=== PATIENT | male | born 1940 | race Caucasian/White ===

== ENCOUNTER 2023-05-10 09:04 | Emergency (ER) | payer MEDICARE, BC, SELFPAY ==
[2023-05-10 09:31] VITALS: BP 143/63; PULSE 54; RESP 18; TEMP 36.2; O2SAT 98; BMI 24.0
[2023-05-10 10:09] LABS: Appearance Urine Turbid (Clear); Bilirubin Urine Negative (Negative); Blood Urine 3+ (Negative); Color Urine Brown (Yellow); Glucose Urine Negative (Negative); Ketones Urine Trace (Negative); Leukocyte Esterase Urine Negative (Negative); Nitrite Urine Negative (Negative); Protein Urine 2+ (Negative); Specific Gravity Urine >= 1.030 (1.000-1.030); Urobilinogen Urine 0.2 (0.2-1.0); pH Urine 5.5 (5.0-8.5)
[2023-05-10 10:19] LABS: Bacteria Urine Few; RBC Urine >100 (0-2); Squamous Epithelial Cell Urine Few (None-Few)
--- NOTE | 2023-05-10 11:32 | ED_ITS ---
HPI - General Adult General Chief complaint: Flank Pain Stated complaint: Blood in urine Time Seen by Provider: 05/10/23 09:14 History of Present Illness HPI narrative: Monday evening discovered some pinky urine and Monday charcoal colored and today was almost black. denies taking any blood thinners and the left testicle is larger than the other. denies having any pain with this. feels getting more tired quicker than normal. no change with urine pattern, pain, or injury /trauma. 83-year-old man presenting to the emergency department with concern of blood in urine and fatigue. Denies abdominal pain. Does note what sounds to be a chronic left-sided hydrocele. He he does recall straining at stool recently wondering if that might have contributed to this blood that we see here today. By the time I am seeing Mr. Fall urinalysis has been resulted with 3+ arben turia but without indication of infection otherwise. He denies personal family history of kidney stones. Has not had trouble with urinary retention. No fever. 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 Prefers to stay active he says. He has a little tired more easily than usual. He does not report exertional dyspnea though otherwise. No trauma. No anticoagulants. The pink colored urine was noted 2 days ago and then was particularly dark the following morning and this morning and now he thinks is lightening. Related Data Home Medications Medication Instructions Recorded Confirmed amlodipine 5 mg tablet 5 mg PO DAILY 05/10/23 05/10/23 cholecalciferol (vitamin D3) 50 50 mcg PO DAILY 05/10/23 05/10/23 mcg (2,000 unit) capsule metoprolol succinate 50 mg 50 mg PO DAILY 05/10/23 05/10/23 tablet,extended release 24 hr omega 5-brh-yrl-fish oil 1,200 mg cap PO 05/10/23 (144 mg-216 mg) capsule (Fish Oil) omeprazole 20 mg capsule,delayed 20 mg PO DAILY 05/10/23 05/10/23 release Allergies Allergy/AdvReac Type Severity Reaction Status Date / Time ativan Allergy Mild dizziness Uncoded 05/10/23 09:40 and near syncopal episode novacaine Allergy Mild Dizziness Uncoded 05/10/23 09:40 and near syncopal episode Review of Systems Status of ROS: Reports: 6 or more systems reviewed and unremarkable except as noted in History and below Exam Narrative: Exam Narrative: Very pleasant small stature. NAD. Moderate kyphosis to the thoracic spine. He is breathing easily. Mucous membranes are moist and appropriately pink. Lungs are clear. There is no flank pain. Abdomen otherwise is soft and nontender without appreciable mass. Genitourinary exam with slightly tender left sided testicle, frankly both are little tender but without particular tension. The left testicle does appear slightly larger than the right, soft. She reports this is longstanding. I do not see any blood at the urethral meatus. Extremities are without edema other than noninflamed venous varicosities over the lower legs. Heart in slower rate and regular rhythm. Const: Vital Signs, click to edit/add: Vital Signs - 24 hr 05/10/23 09:31 Temperature 97.2 F L Pulse Rate [Right Pulse Oximeter] 54 L Respiratory Rate 18 Blood Pressure [Ri ght Upper Arm] 143/63 H Pulse Oximetry 98 Oxygen Delivery Me thod Room Air Documenting provider has reviewed patient's vital signs: yes Course Vital Signs Vital signs: Initial Vital Signs Temperature 97.2 F L 05/10/23 09:31 Temperature Source Temporal Artery Scan 05/10/23 09:31 Pulse Rate 54 L 05/10/23 09:31 Respiratory Rate 18 05/10/23 09:31 Blood Pressure 143/63 H 05/10/23 09:31 Blood Pressure Mean 89 05/10/23 09:31 Blood Pressure Position Sitting 05/10/23 09:31 Pulse Oximetry 98 05/10/23 09:31 Oxygen Delivery Method Room Air 05/10/23 09:31 Vital Signs Temperature 97.2 F L 05/10/23 09:31 Pulse Rate 54 L 05/10/23 09:31 Respiratory Rate 18 05/10/23 09:31 Blood Pressure 143/63 H 05/10/23 09:31 Pulse Oximetry 98 05/10/23 09:31 Oxygen Delivery Method Room Air 05/10/23 09:31 Temperature 97.2 F L 05/10/23 09:31 Pulse Rate 54 L 05/10/23 09:31 Respiratory Rate 18 05/10/23 09:31 Blood Pressure 143/63 H 05/10/23 09:31 Pulse Oximetry 98 05/10/23 09:31 Oxygen Delivery Method Room Air 05/10/23 09:31 Medical Decision Making MDM Narrative Medical decision making narrative: I do see urinalysis evidence of blood 3+ blood. No white cells normal no nitrite no leukocyte esterase. History not consistent with nephrolithiasis but I suppose could be possible in the renal pelvis. but I would work this up for painless hematuria which I think can be done in outpatient setting. Would have concerns of course of bladder polyp. Or other issue in the bladder. Has not been having symptoms otherwise. Is not apparently known to have renal issues and does not have evidence of renal compromise otherwise here today. Does have follow-up in clinic in 2 days time for his regular physical. I think further evaluation can be coordinated here. I did contact patient primary to give a heads up. See patient discharge plan Lab Data Lab results reviewed: Yes I reviewed the patient's lab results Labs: Lab Results 05/10/23 Range/Units 10:00 Urine Color Brown A (Yellow) Urine Appearance Turbid A (Clear) Urine pH 5.5 (5.0-8.5) Ur Specific [place] >= 1.030 (1.000-1.030) Urine Protein 2+ A (Negative) Urine Glucose (UA) Negative (Negative) Urine Ketones Trace A (Negative) Urine Blood 3+ A (Negative) Urine Nitrite Negative (Negative) Urine Bilirubin Negative (Negative) Urine Urobilinogen 0.2 (0.2-1.0) Ur Leukocyte Esterase Negative (Negative) Urine RBC >100 A (0-2) Urine WBC 2-5 (0-5) Ur Squamous Epith Cells Few (None-Few) Urine Bacteria Few A (None) Discharge Plan Discharge Clinical Impression: Painless hematuria Patient Disposition: Home, Self-Care Condition: Stable Instructions: Hematuria (ED) Additional Instructions: Please follow-up on Monday as planned with your doctor. He can help you determine the next steps in workup for this bleeding. Return for persistent increase in bleeding, increasing lower abdominal pain, fever, lightheadedness. Activity Level: No Restrictions Discharge Diet: Regular Prescriptions: No Action metoprolol succinate 50 mg tablet extended release 24 hr 50 mg PO DAILY amlodipine 5 mg tablet 5 mg PO DAILY cholecalciferol (vitamin D3) 50 mcg (2,000 unit) capsule 50 mcg PO DAILY omeprazole 20 mg capsule,delayed release(DR/EC) 20 mg PO DAILY omega 7-xmy-kqn-fish oil [Fish Oil] 1,200 (144-216) mg capsule PO Follow Up/Referrals: Ace Givens MD [Primary Care Provider] - Stand Alone Forms: [employer] Info Instructions
== END 2023-05-10 12:04 | disposition home or self-care (01) ==
LOC: ED 11:54
PROVIDERS: Family Medicine; Emergency Provider Family Medicine; PCP Surgery
DX: R31.9 Hematuria, unspecified (principal)
CPT/HCPCS: 81001; 87086; 99283; 99284

== ENCOUNTER 2023-07-31 09:25 | Outpatient (CLI) | payer MEDICARE, BC, SELFPAY ==
--- NOTE | 2023-07-31 10:12 | W.ANESCHARGE ---
Anesthesia Charges Start Date/Time Anesthesia Start Date: 07/31/23 Anesthesia Start Time: 10:13 Stop Date/Time Anesthesia Stop Date: 07/31/23 Anesthesia Stop Time: 11:00 Summary Extremes of Age - Over 70 or under 1: MDA
--- NOTE | 2023-07-31 11:04 | P.ANES_ITS ---
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
== END 2023-07-31 09:26 | disposition home or self-care (01) ==
LOC: OP CLINIC 09:26
PROVIDERS: PCP Surgery; Visit Provider Internal Medicine Gastroenterology
DX: Z12.11 Encounter for screening for malignant neoplasm of colon (principal); R19.7 Diarrhea, unspecified; K22.70 Barrett's esophagus without dysplasia; Z13.810 Encounter for screening for upper gastrointestinal disorder; Z98.890 Other specified postprocedural states
CPT/HCPCS: 00813; 43239; 45380; 88305; 99100; J2704

== ENCOUNTER 2025-01-31 06:35 | Emergency (ER) | payer MEDICARE, BC, SELFPAY ==
--- OUTSIDE RECORDS SUMMARY | 2025-01-31 06:37 | XMS_ITS | Clinical Summary ---
Author Organization [facility] Address [facility] [place] [address] Care Team Providers Care Can Feeder Name Role Phone Negro Harvey MD Unavailable [phone] Ace Givens MD Primary Care Provider [phone]- [phone] Patricia Ojeda MD Unavailable [phone] Allergies Active Allergy Reactions Criticality Noted Date Comments Lorazepam *Unknown 08/15/2009 Procaine Palpitations 07/05/2006 Medications OMEGA-3 FATTY ACIDS 1,000 MG CAP one daily 0 11/14/19 08 Active multivitamin (MVI) tablet Take 1 tablet by mouth once daily. Contains 0.4 mg of Folic Acid. With vit D 0 09/03/19 10 Active calcium carbonate-vitami n D3, 600 mg-125 unit, (CALCIUM 600 + D) tablet Take 1 tablet by mouth 2 times daily with meals. 0 03/19/20 10 Active ascorbic acid (VITAMIN C) 500 mg tablet Take 1 tablet by mouth 2 times daily with meals. 180 tablet 3 04/03/20 12 Active acetaminophen (TYLENOL) 325 mg tablet Take 1 tablet by mouth every 4 hours if needed. Max acetaminophen dose: 4000mg in 24 hrs. 0 04/06/20 18 Active cholecalciferol (Vitamin D-3) 2,000 unit capsuleIndicatio ns:Vitamin D deficiency Take 1 Capsule (2,000 units) by mouth once daily. 90 Capsule 3 05/16/19 24 Active amLODIPine (NORVASC) 5 mg tabletIndication s:Essential hypertension Take 1 Tablet (5 mg) by mouth once daily. 90 Tablet 3 05/16/19 25 Active metoprolol succinate (TOPROL XL) 50 mg sustained-releas e tabletIndication s:Essential hypertension Take 1 Tablet (50 mg) by mouth once daily. 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 90 Tablet 3 05/16/19 25 Active loperamide 2 mg tabletIndication s:Chronic diarrhea Take 0.5-1 tablet daily for loose stools 40 Tablet 2 08/14/19 25 Active tamsulosin (Flomax) 0.4 mg capsuleIndicatio ns:Incomplete bladder emptying Take 1 Capsule (0.4 mg) by mouth once daily after a meal. 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 Overview (08/03/2023): EGD 04/2012 Dillard's, repeat EGD in 2 years EGD 04/2014 Dillard's, repeat EGD in 3 years EGD 03/2017 [facility], repeat EGD in 3 years EGD 05/2020 [facility], repeat EGD in 3 years EGD 07/2023 [facility], repeat EGD in 3 years Other chest pain 05/10/2007 Overview (05/10/2007): -c/o exertional anterior chest heaviness, leg weakness as well as increased fatigue over the last year -Abnormal Stress Echo 04/05/07 Inferobasilar hypokinesia with peak exercise suggestive of ischemia Mitral valve insufficiency and aortic valve insu fficiency 05/10/2007 Overview (05/10/2007): -moderate aortic and mitral valve insufficiency per echo 03/14 Mixed hyperlipidemia 05/10/2007 Overview (05/10/2007): -started on statin tx, at LDL goal <70 -05/03/07 TChol 121 TG 76 LDL 69 HDL 37 Esophageal reflux 05/10/2007 Overview (05/10/2007): -on Prilosec Unspecified essential hypertension 11/03/2006 Diaphragmatic hernia without mention of obstruction or gangrene 11/03/2006 Overview (05/10/2007): -large hiatal hernia with 1/2 to 2/3 of stomach in chest cavity Resolved Problems Problem Noted Date Diagnosed Date Resolved Date Unspecified asthma(493.90) 01/28/2008 1 05/30/2015 Encounters Date Type Department Care Team Description 12/19/2024 11:00 AM CDT Office Visit [address] [id number] Patricia Ojeda MD Procedure (Cystoscopy) 12/19/2024 Travel from Last 3 Months Immunizations Immunization Administration Dates Next Due COVID-19 VACCINE SPIKEVAX (M ODERNA 50MCG/0.5ML) 12YO+ PFS 04/11/2023 COVID-19 vaccine (Pfizer-Bio NTech 30mcg/0.3mL) 12YO+ BIVALENT PF, MDV 03/01/2022 COVID-19 vaccine (Pfizer-Bio NTech 30mcg/0.3mL) PF, MDV 02/05/2021,07/14/2020,06/23/2020 Influenza, High-dose Inactivated 018,02/02/2017,01/28/2016,02/04,02/05/2014,01/29/2013,02/07/2012 Influenza, IIV3 (Age 6-35 mos) 02/09/2011,2009 Influenza, IIV3 (Age >=3 years) 01/30/20 13,02/07/2012,02/09/2011,02/06,02/29/2008,02/12/2008,03/01/2007 ,03/04/2005,03/08/2004,03/03/2003 Influenza, Inactivated AIIV4 (Age 65+ Years) Preserv Free 02/07/2023,02/07/2022,01/28/2021,01/16 Influenza, Inactivated IIV3 (Age 65+ Years) Preserv Free 02/01/2024,02/04/2019 Pneumococcal Poly,23-Valent (Pneumovax) 02/02/2017,03/10/2006 Pneumococcal conj 13-Valent (Prevnar 13) 03/19/2014 RSV, Bivalent Vaccine Recons tituted (Abrysvo 120MCG/0.5mL) 02/07/2023 Td (Age >=7 Years) 03/20/2002 Tdap 06/04/2020,02/22/2011 Zoster (Shingrix-RZV, recombinant) 08/05/2020, Zoster (Zostavax-ZVL, live) 05/10/2011 Family History Medical History Relation Name Comments Diabetes Father Other Father esophageal ca Diabetes Mother Anesthesia Problem No Family History Blood Disease No Family History Relation Name Status Comments Father Mother Social History Tobacco Use Types Packs/Day Years Used Date Smoking Tobacco: Never Smokeless Tobacco: Never Tobacco Cessation:Counseling Given: Yes Alcohol Use Standard Drinks/Week Comments Yes 10 (1 standard drink = 0.6 oz pu re alcohol) Very rare PHQ-2 Answer Date Recorded PHQ-2 TOTAL SCORE 2 05/16/2024 Social Connections Answer Date Recorded Do you often feel lonely or isolated from those around you? 4 05/16/2024 Financial Resource Strain Answer Date R ecorded Difficulty of Paying Living Expenses 3 05/16/2024 Difficulty of Paying Living Expenses Not on file 05/16/2024 Food Insecurity Answer Date Recorded Do you worry your food will run out before you are able to buy more? 1 05/16/2024 Transportation Needs Answer Date Record ed Does lack of transportation keep you from medica l appointments? 1 05/16/2024 Does lack of transportation keep you from work, meetings or getting things that you need? 1 05/16/2024 Housing Stability Answer Date Recorded What is your housing situation today? 1 05/16/2024 Utilities Answer Date Recorded Do you have trouble paying f or utilities (for example, heat, electricity, water, phone)? 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 Not on file Not on file Not on file Obstetrics History Last Filed Vital Signs Vital Sign Reading Time Taken Comments Blood Pressure 129/72 09/03/2024 1:40 PM CDT Pulse 57 09/03/2024 1:40 PM CDT Temperature 36.7 C (98 F) 05/05/2020 12:52 PM ADVERTISING SALES REPRESENTATIVE Respiratory Rate 16 02/17/2022 8:15 AM CDT Oxygen Saturation 98% 09/03/2024 1:40 PM CDT Inhaled Oxygen Concentration - - Weight 59 kg (130 lb) 09/03/2024 1:40 PM CDT Height 156.6 cm (5' 1.65) 05/16/2024 9:09 AM CS T Body Mass Index 24.04 05/16/2024 9:09 AM ADVERTISING SALES REPRESENTATIVE Plan of Treatment Upcoming Encounters Date Type Department Care Team (Late st Contact Info) Description 06/19/2025 11:15 AM ADVERTISING SALES REPRESENTATIVE Procedure Only [address] [phone] Patricia Ojeda MD [address] [place] [address] Health Maintenance Due Date Last Done Comments COVID-19 vaccine series (9 - Pfizer risk 2023- season) 2025 02/01/2024, 04/11/2023, 08/30/2022, Additional history exists Influenza Vaccine (#1) 2025 , 02/07/2023, 02/07/2022, Additional history exists BMI (ht and wt on same day) for age 18+ 05/16/2025 05/16/2024, 05/12/2023, 05/10/2022, Additional history exists Depression screening for age 12+ 05/16/2025 05/16/2024, 05/15/2023, 05/15/2023, Additional history exists Medicare Wellness for age 65+ 05/17/2025 05/16/2024, 05/12/2023, 05/10/2022, Additional history exists Tetanus booster 06/04/2030 06/04/2020, 02/05, 03/20/2002 Pneumococcal series for age 50+ Completed 02/02/2017, 03/19/2014, 03/10/2006 Zoster (shingles) series for age 50+ Completed 08/05/2020, 06/04/2020, 05/10/2011 RSV vaccine for adults or Completed 02/07/2023 Hepatitis B series for 19+ Aged Out N o longer eligible based on patient's age to complete this topic Procedures Procedure Name Priority Date/Time Associated Diagnosis Comments PATH URINE CYTOLOGY Routine 12/19/2024 1 1:58 AM CDT Malignant neoplasm of urinary bladder, unspecified site (HC) from Last 3 Months Results * PATH URINE CYTOLOGY (12/19/2024 11:58 AM CDT) Case Report Medical Cytology Report Case: [id number] Authorizing Provider: Patricia Ojeda MD Collected: 12/19/2024 1158 Ordering Location: [facility] Received: 12/19/2024 1321 Clinic Pathologist: Yury Ruano Jr., MD Specimen: Urine Void 12/20/2024 3:25 PM CDT [facility] Final Diagnosis A) URINE, VOIDED, CYTOLOGY: 1. Acute inflammation, negative for high-grade urothelial carcinoma 12/20/2024 3:25 PM CDT [facility] at 1525 CDT Comment A) According to the Shruthi System of reporting urinary cytology, the diagnosis of negative for high-grade urothelial carcinoma indicates the sample is composed of benign urothelial cells and that cells of high-grade urothelial carcinoma are absent. This does not exclude benign and low-grade urothelial neoplasia. 12/20/2024 3:25 PM CDT [facility] Clinical Information History of bladder cancer 12/20/2024 3:25 PM CDT [facility] Gross Description A) SOURCE: Urine, Voided The specimen consists of 60 cc of light peach opaque fluid from which the following is prepared: -1 Papanicolaou stained ThinPrep slide 12/20/2024 3:25 PM CDT [facility] Microscopic Description Specimen adequacy: Adequate for interpretation. All slides were reviewed. The microscopic appearance substantiates the diagnosis. 12/20/2024 3:25 PM CDT [facility] Additional Information Cytology is screened at [facility] - [address], [place] [address] and [facility] - [address] [place] [address] and [facility] - [address] [place] [address] Interpreted at [facility] - [address], [place] [address] 12/20/2024 3:25 PM CDT [facility] Urine URINE SPECIMEN / Unknown Non-Blood / Unknown 12/19/2024 11:58 AM CDT 12/19/2024 1:21 PM CDT us Patricia Ojeda MD PATHOLOGY/CYTOLOGY Final Resul t [facility] [address] [place] [address], from Last 3 Months Insurance [id number] [id number] MEDICARE PART B HB ONLY [place] BLUE MR PB ONLY MEDICARE PART A HB ONLY [place] BLUE HB ONLY Advance Directives Documents on File Type Date Recorded Patient Pneumatic Jack Operator Expl anation Healthcare Directive 04/10/2012 2:05 PM HE ALTH CARE DECLARATION, 09/19/1994 * Full Code (Latest Code Status on File) Date Activated Date Inactivated Comments 05/10/2007 9:24 AM 05/10/2007 11:23 PM Care Teams Can Feeder Relationship Specialty Start Date End Date Ace Givens MD [address] [place] [address] PCP - General Family Practice 02/05/21 Negro Harvey MD [address] [place] [address] Gastroenterology 03/14/13 Patricia Ojeda MD [address] [place] [address] [place] [id number] Surgery - Urology 06/20/24
[2025-01-31 06:39] VITALS: BP 173/80; PULSE 67; RESP 16; TEMP 36; O2SAT 96; BMI 26.8
[2025-01-31 06:49] LABS: Appearance Urine Cloudy (Clear)
--- NOTE | 2025-01-31 07:09 | CRLHL7_ITS ---
For Patients: As a result of the Century Cures Act, medical imaging exams and procedure reports are released immediately into your electronic medical record. You may view this report before your referring provider. If you have questions, please contact your health care provider. INDICATION: Hematuria. TECHNIQUE: CT abdomen and pelvis acquired without contrast. COMPARISON: CT abdomen and pelvis 08/06/2009. FINDINGS: Lower chest: Lung bases are clear. No pleural or pericardial effusions. Small hiatal hernia, unchanged. Postoperative changes about the gastroesophageal junction, as before. Liver: Unremarkable. Spleen: Unremarkable. Pancreas: Unremarkable. Gallbladder and bile ducts: No calcified stones or biliary ductal dilatation. Kidneys: No urolithiasis or hydronephrosis. Bilateral cysts have decreased. Adrenal glands: Unremarkable. GI tract: Colonic diverticulosis without evidence of acute diverticulitis. No obstruction or focal inflammatory changes. Nonvisualized appendix. No free air or free fluid. Lymph nodes: No pathologic lymphadenopathy. Vascular structures: Atherosclerotic disease. No abdominal aortic aneurysm. Pelvic Organs: Prostatomegaly. Bladder as imaged is unremarkable. Bilateral hernia repair changes. Bones: Degenerative changes spine and pelvis. No acute or suspicious abnormality. IMPRESSION: 1. No urolithiasis or hydronephrosis. 2. Prostatomegaly. 3. Colonic diverticulosis without evidence of acute diverticulitis. Dictated by Moy Jurado MD @ 01/31/2025 8:15:44 AM Please note that all CT scans at this facility use dose modulation, iterative reconstruction, and/or weight-based dosing when appropriate to reduce radiation dose to as low as reasonably achievable. Dictated by: Moy Jurado MD @ 01/31/2025 08:16:07 (Electronically Signed)
--- NOTE | 2025-01-31 07:22 | ED.MALEGU ---
HPI - Male Genitourinary General Date Seen: 01/31/25 <Vincent Santana MD - Last Filed: 02/03/25 01:17> Chief complaint: Urogenital Problems, Male <Vincent Santana MD - Last Filed: 02/03/25 01:17> Stated complaint: urinating blood <Vincent Santana MD - Last Filed: 02/03/25 01:17> Time Seen by Provider: 01/31/25 07:00 <Vincent Santana MD - Last Filed: 02/03/25 01:17> Source: patient <Vincent Santana MD - Last Filed: 02/03/25 01:17> Mode of arrival: ambulatory <Vincent Santana MD - Last Filed: 02/03/25 01:17> Limitations: no limitations <Vincent Santana MD - Last Filed: 02/03/25 01:17> History of Present Illness HPI Narrative: Patient is an 84-year-old male who was in his usual state of health yesterday. Last evening prior to going to bed he urinated in saw a small scab and his urine was pink. No dysuria, fevers, back pain, nausea, vomiting. Throughout the night when he has urinated it has been grossly bloody. No large clots. He feels that he is emptying his bladder. He was seen for the same thing May [address] Ojeda in Urology. He has a large left hydrocele that they are monitoring. He does not recall any discussion regarding the cause of his bleeding previously. It was treated with antibiotics for a few days and resolved so I assume it was prostatitis. 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 He normally sees Dr. Givens. <Vincent Santana MD - Last Filed: 02/03/25 01:17> Related Data Home medications: Home Medications ?Medication ?Instructions ?Recorded ?Confirmed amlodipine 5 mg tablet 5 mg PO DAILY 05/10/23 01/31/25 cholecalciferol (vitamin D3) 50 50 mcg PO DAILY 05/10/23 01/31/25 mcg (2,000 unit) capsule metoprolol succinate 50 mg 50 mg PO DAILY 05/10/23 01/31/25 tablet,extended release 24 hr omega 3-pvf-wfm-fish oil 1,200 mg cap PO 05/10/23 (144 mg-216 mg) capsule (Fish Oil) omeprazole 20 mg capsule,delayed 20 mg PO DAILY 05/10/23 01/31/25 release loperamide 2 mg capsule 1 - 2 PO diarrhea 01/31/25 Previous Rx's ?Medication ?Instructions ?Recorded ciprofloxacin HCl 250 mg tablet 250 mg PO BID #10 tabs 01/31/25 (Cipro) <Vincent Santana MD - Last Filed: 02/03/25 01:17> Allergies/Adverse reactions: Allergies Allergy/AdvReac Type Severity Reaction Status Date / Time ativan Allergy Mild dizziness Uncoded 05/10/23 09:40 and near syncopal episode novacaine Allergy Mild Dizziness Uncoded 05/10/23 09:40 and near syncopal episode <Vincent Santana MD - Last Filed: 02/03/25 01:17> Review of Systems Narrative: Review of systems is positive for chronic loose stools and an inability to gain weight. His blood pressure has been well managed. He denies exertional chest pains or shortness of breath. He describes a surgery on his stomach that sounds like a hiatal hernia repair. Review of systems in all other areas is noted to be negative. <Vincent Santana MD - Last Filed: 02/03/25 01:17> [facility] Social History: Social History Smoking Status: Never smoker How often do you have a drink containing alcohol: never AUDIT-C Alcohol total score: 0 Non-prescribed substance use: denies use <Vincent Santana MD - Last Filed: 02/03/25 01:17> Exam Narrative: Exam Narrative: Vitals noted. HEENT: Conjunctiva clear. Neck is supple without adenopathy. Lungs: Clear to auscultation in all farmer. No wheezes, rales, rhonchi. Heart: Regular rate and rhythm without murmur. Abdomen: Soft and nontender. No guarding, rigidity, rebound. Bowel sounds are normal. No palpable masses. No CVA tenderness. His left testicle is enlarged but nontender. Extremities: No cyanosis or edema. Good distal pulses. Skin: No abnormalities noted of the exposed skin. Neurologic: Awake, alert, fully oriented. Neurologic exam is nonfocal. <Vincent Santana MD - Last Filed: 02/03/25 01:17> Const: Vital Signs, click to edit/add: Vital Signs - 24 hr 01/31/25 06:39 Temperature 96.8 F L Pulse Rate [Pulse Oximeter] 67 Respiratory Rate 16 Blood Pressure [Ri ght Upper Arm] 173/80 H Pulse Oximetry 96 Oxygen Delivery Me thod Room Air <Vincent Santana MD - Last Filed: 02/03/25 01:17> Vital Signs, click to edit/add: Vital Signs - 24 hr 01/31/25 06:39 Temperature 96.8 F L Pulse Rate [Pulse Oximeter] 67 Respiratory Rate 16 Blood Pressure [Ri ght Upper Arm] 173/80 H Pulse Oximetry 96 Oxygen Delivery Me thod Room Air <Iker Kinney MD - Last Filed: 01/31/25 08:25> Course Course ED Course: Patient seen and examined. His urine is grossly bloody with 3+ protein, 3+ blood, greater than 100 red cells per high-power field and 2-5 white cells per high-power field. CBC, BMP, CT of the abdomen pelvis are ordered. His care is turned over to Dr. Kinney. <Vincent Santana MD - Last Filed: 02/03/25 01:17> Vital Signs Vital signs: Initial Vital Signs Temperature 96.8 F L 01/31/25 06:39 Temperature Source Temporal Artery Scan 01/31/25 06:39 Pulse Rate 67 01/31/25 06:39 Respiratory Rate 16 01/31/25 06:39 Blood Pressure 173/80 H 01/31/25 06:39 Blood Pressure Mean 111 H 01/31/25 06:39 Blood Pressure Position Semi-Fowlers 01/31/25 06:39 Pulse Oximetry 96 01/31/25 06:39 Oxygen Delivery Method Room Air 01/31/25 06:39 Vital Signs Temperature 96.8 F L 01/31/25 06:39 Pulse Rate 67 01/31/25 06:39 Respiratory Rate 16 01/31/25 06:39 Blood Pressure 173/80 H 01/31/25 06:39 Pulse Oximetry 96 01/31/25 06:39 Oxygen Delivery Method Room Air 01/31/25 06:39 Temperature 96.8 F L 01/31/25 06:39 Pulse Rate 67 01/31/25 06:39 Respiratory Rate 16 01/31/25 06:39 Blood Pressure 173/80 H 01/31/25 06:39 Pulse Oximetry 96 01/31/25 06:39 Oxygen Delivery Method Room Air 01/31/25 06:39 <Vincent Santana MD - Last Filed: 02/03/25 01:17> Initial Vital Signs Temperature 96.8 F L 01/31/25 06:39 Temperature Source Temporal Artery Scan 01/31/25 06:39 Pulse Rate 67 01/31/25 06:39 Respiratory Rate 16 01/31/25 06:39 Blood Pressure 173/80 H 01/31/25 06:39 Blood Pressure Mean 111 H 01/31/25 06:39 Blood Pressure Position Semi-Fowlers 01/31/25 06:39 Pulse Oximetry 96 01/31/25 06:39 Oxygen Delivery Method Room Air 01/31/25 06:39 Vital Signs Temperature 96.8 F L 01/31/25 06:39 Pulse Rate 67 01/31/25 06:39 Respiratory Rate 16 01/31/25 06:39 Blood Pressure 173/80 H 01/31/25 06:39 Pulse Oximetry 96 01/31/25 06:39 Oxygen Delivery Method Room Air 01/31/25 06:39 Temperature 96.8 F L 01/31/25 06:39 Pulse Rate 67 01/31/25 06:39 Respiratory Rate 16 01/31/25 06:39 Blood Pressure 173/80 H 01/31/25 06:39 Pulse Oximetry 96 01/31/25 06:39 Oxygen Delivery Method Room Air 01/31/25 06:39 <Iker Kinney MD - Last Filed: 01/31/25 08:25> MDM - Male Genitourinary MDM Narrative Medical decision making narrative: Patient is 84-year-old gentleman not on anticoagulation who presents with hematuria. He has had a hematuria in the past which has been attributed to urinary tract infection. Patient's labs are stable and CT scan showed no acute abnormalities. He does need follow-up with Urology but I do think today we will treat him with Cipro for the next 5 days with primary care follow-up next week with a urinalysis with likely urology follow-up. <Iker Kinney MD - Last Filed: 01/31/25 08:25> Lab Data Labs: Lab Results 01/31/25 01/31/25 Range/Units 06:39 07:25 WBC 5.39 (4.50-11.00) K/uL RBC 4.71 (4.30-5.90) m/uL Hgb 14.4 (13.5-17.5) gm/dL Hct 44.3 (37.0-53.0) % MCV 94 (80-100) fL MCH 31 (26-34) pg MCHC 33 (32-36) gm/dL RDW Coeff of Nadine 12.8 (11.5-15.5) % Plt Count 209 (140-440) K/uL Neut % (Auto) 63.4 (42.0-72.0) % Lymph % (Auto) 23.2 (20-44) % [place] % (Auto) 9.3 (0.0-11.0) % Eos % (Auto) 2.8 (0.0-7.0) % Baso % (Auto) 0.4 (0.0-3.0) % Neut # (Auto) 3.42 (1.7-7.0) K/uL Lymph # (Auto) 1.25 (0.90-2.90) K/uL [place] # (Auto) 0.50 (0.00-0.90) K/UL Eos # (Auto) 0.15 (0.00-0.50) K/uL Baso # (Auto) 0.02 (0.00-0.30) K/uL Abs Immat Gran (auto) 0.05 (0.00-0.30) K/uL Imm/Tot Granulo (auto) 0.9 % Sodium 138 (135-149) mmol/L Potassium 4.5 (3.6-5.1) mmol/L Chloride 103 (96-114) mmol/L Carbon Dioxide 29 (20-32) mmol/L Anion Gap 6 L (7-15) mEq/L BUN 25 (7-30) mg/dL Creatinine 1.0 (0.5-1.5) mg/dL Estimated Creat Clear 44.40 Estimated GFR 73 ml/min Glucose 118 H (60-115) mg/dL Calcium 8.6 (8.4-10.6) mg/dL Urine Color Brown A (Yellow) Urine Appearance Cloudy A (Clear) Urine pH 5.5 (5.0-8.5) Ur Specific Moody 1.020 (1.000-1.030) Urine Protein 3+ A (Negative) Urine Glucose (UA) Negative (Negative) Urine Ketones 1+ A (Negative) Urine Blood 3+ A (Negative) Urine Nitrite Negative (Negative) Urine Bilirubin 3+ A (Negative) Urine Urobilinogen 2.0 A (0.2-1.0) Ur Leukocyte Esterase 3+ A (Negative) Urine RBC >100 A (0-2) Urine WBC 2-5 (0-5) Ur Squamous Epith Cells Few (None-Few) Amorphous Sediment Moderate A (None) Urine Bacteria Moderate A (None) Urine Mucus Moderate A (None) <KikeBalbina Santana MD - Last Filed: 02/03/25 01:17> Lab Results 01/31/25 01/31/25 Range/Units 06:39 07:25 WBC 5.39 (4.50-11.00) K/uL RBC 4.71 (4.30-5.90) m/uL Hgb 14.4 (13.5-17.5) gm/dL Hct 44.3 (37.0-53.0) % MCV 94 (80-100) fL MCH 31 (26-34) pg MCHC 33 (32-36) gm/dL RDW Coeff of Nadine 12.8 (11.5-15.5) % Plt Count 209 (140-440) K/uL Neut % (Auto) 63.4 (42.0-72.0) % Lymph % (Auto) 23.2 (20-44) % [place] % (Auto) 9.3 (0.0-11.0) % Eos % (Auto) 2.8 (0.0-7.0) % Baso % (Auto) 0.4 (0.0-3.0) % Neut # (Auto) 3.42 (1.7-7.0) K/uL Lymph # (Auto) 1.25 (0.90-2.90) K/uL [place] # (Auto) 0.50 (0.00-0.90) K/UL Eos # (Auto) 0.15 (0.00-0.50) K/uL Baso # (Auto) 0.02 (0.00-0.30) K/uL Abs Immat Gran (auto) 0.05 (0.00-0.30) K/uL Imm/Tot Granulo (auto) 0.9 % Sodium 138 (135-149) mmol/L Potassium 4.5 (3.6-5.1) mmol/L Chloride 103 (96-114) mmol/L Carbon Dioxide 29 (20-32) mmol/L Anion Gap 6 L (7-15) mEq/L BUN 25 (7-30) mg/dL Creatinine 1.0 (0.5-1.5) mg/dL Estimated Creat Clear 44.40 Estimated GFR 73 ml/min Glucose 118 H (60-115) mg/dL Calcium 8.6 (8.4-10.6) mg/dL Urine Color Brown A (Yellow) Urine Appearance Cloudy A (Clear) Urine pH 5.5 (5.0-8.5) Ur Specific Moody 1.020 (1.000-1.030) Urine Protein 3+ A (Negative) Urine Glucose (UA) Negative (Negative) Urine Ketones 1+ A (Negative) Urine Blood 3+ A (Negative) Urine Nitrite Negative (Negative) Urine Bilirubin 3+ A (Negative) Urine Urobilinogen 2.0 A (0.2-1.0) Ur Leukocyte Esterase 3+ A (Negative) Urine RBC >100 A (0-2) Urine WBC 2-5 (0-5) Ur Squamous Epith Cells Few (None-Few) Amorphous Sediment Moderate A (None) Urine Bacteria Moderate A (None) Urine Mucus Moderate A (None) <Iker Kinney MD - Last Filed: 01/31/25 08:25> Discharge Plan Discharge Clinical Impression: Urinary tract infection <Vincent Santana MD - Last Filed: 02/03/25 01:17> Patient Disposition: Home, Self-Care <Vincent Santana MD - Last Filed: 02/03/25 01:17> Condition: Stable <Vincent Santana MD - Last Filed: 02/03/25 01:17> Instructions: Urinary Tract Infection in Men (ED) <Vincent Santana MD - Last Filed: 02/03/25 01:17> Additional Instructions: Cipro as directed Follow-up with your doctor next week to repeat your urinalysis. <Vincent Santana MD - Last Filed: 02/03/25 01:17> Activity Level: No Restrictions <Vincent Santana MD - Last Filed: 02/03/25 01:17> No Restrictions <Iker Kinney MD - Last Filed: 01/31/25 08:25> Discharge Diet: Regular <Vincent Santana MD - Last Filed: 02/03/25 01:17> Regular <Iker Kinney MD - Last Filed: 01/31/25 08:25> Prescriptions: New ciprofloxacin HCl [Cipro] 250 mg tablet 250 mg PO BID Qty: 10 0RF No Action metoprolol succinate 50 mg tablet extended release 24 hr 50 mg PO DAILY amlodipine 5 mg tablet 5 mg PO DAILY cholecalciferol (vitamin D3) 50 mcg (2,000 unit) capsule 50 mcg PO DAILY omeprazole 20 mg capsule,delayed release(DR/EC) 20 mg PO DAILY omega 4-rlh-xyo-fish oil [Fish Oil] 1,200 (144-216) mg capsule PO loperamide 2 mg capsule 1 - 2 PO <Vincent Santana MD - Last Filed: 02/03/25 01:17> Follow Up/Referrals: Ace Givens MD [Primary Care Provider, Family Practice] <Vincent Santana MD - Last Filed: 02/03/25 01:17> Stand Alone Forms: MyHealth Info Instructions <Vincent Santana MD - Last Filed: 02/03/25 01:17>
[2025-01-31 07:41] LABS: Hematocrit* 44.3 % (37.0-53.0); Hemoglobin* 14.4 gm/dL (13.5-17.5); Immature Granulocytes Abs Auto 0.05 K/uL (0.00-0.30); Immature Granulocytes Pct Auto 0.9 %; Lymphocytes Absolute Auto 1.25 K/uL (0.90-2.90); Mean Corpuscular HGB Conc 33 gm/dL (32-36); Mean Corpuscular Hemoglobin 31 pg (26-34); Mean Corpuscular Volume 94 fL (80-100); RDW Coefficient of Variation % 12.8 % (11.5-15.5); Red Blood Count* 4.71 m/uL (4.30-5.90); White Blood Count* 5.39 K/uL (4.50-11.00)
[2025-01-31 07:45] LABS: Slide Review Reflex No
[2025-01-31 07:46] LABS: Chloride* 103 mmol/L (96-114)
[2025-01-31 07:47] LABS: Potassium* 4.5 mmol/L (3.6-5.1); Sodium* 138 mmol/L (135-149)
[2025-01-31 07:49] LABS: Blood Urea Nitrogen* 25 mg/dL (7-30); Creatinine* 1.0 mg/dL (0.5-1.5); Est. Creatinine Clearance* 44.40; Estimated Glomerular Filt Rate 73 ml/min
[2025-01-31 07:50] LABS: Anion Gap 6 mEq/L (7-15); Calcium* 8.6 mg/dL (8.4-10.6); Carbon Dioxide* 29 mmol/L (20-32); Glucose* 118 mg/dL (60-115)
== END 2025-01-31 08:35 | disposition home or self-care (01) ==
PROVIDERS: Emergency Provider Family Medicine; PCP Surgery
DX: N39.0 Urinary tract infection, site not specified (principal); R31.9 Hematuria, unspecified
CPT/HCPCS: 36415; 74176; 80048; 81001; 85025; 87086; 99282; 99284; 99285